=== PATIENT | female | born 1950 | race African-American/Black ===

== ENCOUNTER 2023-01-09 07:35 | Day surgery (SDC) | payer OTHER, BC ==
[2023-01-03 11:35] VITALS: BMI 27.6
[2023-01-09 10:49] VITALS: RESP 16; TEMP 97.5
[2023-01-09 10:51] VITALS: BP 171/69; PULSE 70
== END 2023-01-09 11:20 | disposition home or self-care (01) ==
LOC: FASU-ENDO 07:35
PROVIDERS: ATTEND Internal Medicine Gastroenterology
PROC: 0DBN8ZX Excision of Sigmoid Colon, Via Natural or Artificial Opening Endoscopic, Diagnostic (ICD-10-PCS; 2023-01-09)
PROC: 0DBM8ZX Excision of Descending Colon, Via Natural or Artificial Opening Endoscopic, Diagnostic (ICD-10-PCS; 2023-01-09)
PROC: 0DBH8ZX Excision of Cecum, Via Natural or Artificial Opening Endoscopic, Diagnostic (ICD-10-PCS; principal; 2023-01-09 09:35)
DX: Z12.11 Encounter for screening for malignant neoplasm of colon (principal); D12.5 Benign neoplasm of sigmoid colon; K63.5 Polyp of colon